=== PATIENT | female | born 1965 | race Two or more races ===

== ENCOUNTER 2024-06-07 09:08 | Outpatient (CLI) | payer OTHER | END 2024-06-07 09:11 | disposition home or self-care (01) | LOC: SONOGRAMA 09:08 | PROVIDERS: ATTEND Pathology Anatomic Pathology & Clinical Pathology | DX: E04.1 Nontoxic single thyroid nodule (principal) ==

== ENCOUNTER 2024-10-01 10:02 | Outpatient (CLI) | payer OTHER | END 2024-10-01 10:04 | disposition home or self-care (01) | LOC: SONOGRAMA 10:02 | PROVIDERS: ATTEND Pathology Anatomic Pathology & Clinical Pathology | DX: E04.2 Nontoxic multinodular goiter (principal); D44.0 Neoplasm of uncertain behavior of thyroid gland ==